=== PATIENT | male | born 1935 | race Hispanic/Latino ===

== ENCOUNTER 2020-12-22 23:25 | Inpatient (IN) | payer MEDICAID, OTHER ==
[~2020-12-22] VITALS: Ht 162.6 cm; Wt 70.0 kg
[2020-12-22 23:53] LABS: BASOPHILS % (AUTO) 1.5 % (0.0-5.0); EOSINOPHILS % (AUTO) 13.6 % (0.0-8.0); HEMATOCRIT 25.7 % (42-54); LYMPHOCYTES % (AUTO) 34.4 % (21.0-51.0); MEAN CORPUSCULAR HEMOGLOBIN 25.6 pg (27.0-33.0); MEAN CORPUSCULAR HGB CONC 31.9 g/dL (32.0-36.0); MEAN CORPUSCULAR VOLUME 80.3 fL (79-99); MONOCYTES % (AUTO) 8.4 % (3.0-13.0); PLATELET COUNT (AUTO) 240 K/uL (130-400); RED CELL DISTRIBUTION WIDTH 14.6 % (11.0-15.5); WHITE BLOOD COUNT (AUTO) 7.5 K/uL (4.8-10.8)
[2020-12-23] MEDS ORDERED: ASPIRIN 81MG CHEW TAB PO ONE
[2020-12-23] MEDS ORDERED: NITROGLYCERIN 1GM OINT 1 INCH/1GM TD ONE
[2020-12-23 00:10] LABS: CREATININE 1.4 mg/dL (0.5-1.5)
[2020-12-23 00:15] LABS: ALBUMIN 3.5 g/dL (3.5-5.0); BILIRUBIN,TOTAL 0.3 mg/dL (0.2-1.0); TOTAL PROTEIN, SERUM 7.2 g/dL (6.0-8.3)
[2020-12-23 02:15] LABS: APPEARANCE,URINE Clear (CLEAR); BILIRUBIN,URINE Negative (NEGATIVE); COLOR,URINE Yellow (YELLOW); GLUCOSE, URINE (UA) Negative (NEGATIVE); KETONES,URINE Negative (NEGATIVE); LEUKOCYTE ESTERASE ,URINE Negative (NEGATIVE); NITRATE,URINE Negative (NEGATIVE); OCCULT BLOOD,URINE Negative (NEGATIVE); PROTEIN,URINE Negative (NEGATIVE); UROBILINOGEN,URINE 0.2 mg/dL (0.2-1.0)
[2020-12-23] MEDS ORDERED: ONDANSETRON 4MG INJ IV PRN (04:00)
[2020-12-23] MEDS ORDERED: ACETAMINOPHEN 325 MG TAB PO PRN ×2 (04:00)
[2020-12-23] MEDS ORDERED: MORPHINE 4 MG SYG IV PRN (04:00)
[2020-12-23] MEDS ORDERED: MAG/ALUM/SIMETH 30 ML UDCUP PO PRN (04:00)
[2020-12-23] MEDS ORDERED: NITROGLYCERIN 0.4 MG SL TAB SL PRN (04:00)
[2020-12-23] MEDS ORDERED: LACTULOSE 20 GM/30 ML UDCUP PO PRN (04:00)
[2020-12-23 05:38] LABS: RETICULOCYTE % (AUTO) 1.26 % (0.42-2.23)
[2020-12-23 05:45] LABS: CHOLESTEROL 188 mg/dL (<200); HDL CHOLESTEROL 46 mg/dL (29-71); LDL DIRECT 119 mg/dL (0-99); TRIGLYCERIDES 83 mg/dL (30-200)
[2020-12-23 05:56] LABS: % IRON SATURATION 6.4 % (30-44)
[2020-12-23] MEDS: ASPIRIN 81 MG EC TAB PO SCH (10:18)
[2020-12-23] MEDS: FAMOTIDINE 20MG VIAL IV SCH ×2 (10:18→20:04)
[2020-12-23] MEDS: ENOXAPARIN SODIUM 40 MG/0.4 ML SYRINGE SQ SCH (10:19)
[2020-12-24 04:30] VITALS: BP 168/57
[2020-12-24 06:04] LABS: BASOPHILS % (AUTO) 1.3 % (0.0-5.0); EOSINOPHILS % (AUTO) 11.7 % (0.0-8.0); HEMATOCRIT 25.6 % (42-54); LYMPHOCYTES % (AUTO) 25.4 % (21.0-51.0); MEAN CORPUSCULAR HEMOGLOBIN 25.2 pg (27.0-33.0); MEAN CORPUSCULAR HGB CONC 31.3 g/dL (32.0-36.0); MEAN CORPUSCULAR VOLUME 80.5 fL (79-99); MONOCYTES % (AUTO) 9.4 % (3.0-13.0); NEUTROPHILS % (AUTO) 52.1 % (40.0-77.0); PLATELET COUNT (AUTO) 252 K/uL (130-400); RED BLOOD CELL COUNT(AUTO) 3.18 MIL/uL (4.50-6.20); RED CELL DISTRIBUTION WIDTH 14.6 % (11.0-15.5); WHITE BLOOD COUNT (AUTO) 7.1 K/uL (4.8-10.8)
[2020-12-24 06:22] LABS: ALBUMIN 3.2 g/dL (3.5-5.0); BILIRUBIN,TOTAL 0.6 mg/dL (0.2-1.0); CREATININE 1.3 mg/dL (0.5-1.5); POTASSIUM 4.8 mmol/L (3.5-5.1); TOTAL PROTEIN, SERUM 6.7 g/dL (6.0-8.3)
[2020-12-24] MEDS ORDERED: EPOETIN ALFA-EPBX (NON-ESRD) 10,000 UNIT/ML VIAL SQ SCH (07:30)
[2020-12-24 08:00] VITALS: BP 126/46
[2020-12-24] MEDS ORDERED: COMPOUND IV MISC 1 EACH IVSOLN MISC PRN (08:00)
[2020-12-24] MEDS ORDERED: REGADENOSON 0.4 MG/5 ML PF SYG IVP SCH (08:30)
[2020-12-24] MEDS: FAMOTIDINE 20MG VIAL IV SCH ×2 (09:07→19:26)
[2020-12-24] MEDS: ASPIRIN 81 MG EC TAB PO SCH (09:08)
[2020-12-24] MEDS: IRON SUCROSE COMPLEX 300 MG in 0.9% NACL 250ML 250 ML IV SCH (09:08)
[2020-12-24] MEDS: ENOXAPARIN SODIUM 40 MG/0.4 ML SYRINGE SQ SCH (09:08)
[2020-12-24 12:00] VITALS: BP 145/43
[2020-12-24 16:00] VITALS: BP 173/53
[2020-12-24 19:13] VITALS: BP 127/49
[2020-12-24] MEDS ORDERED: ASPIRIN PO (19:23)
[2020-12-24] MEDS ORDERED: TELM40TA8 PO (19:23)
[2020-12-24] MEDS ORDERED: NIFE30TA98 PO (19:23)
[2020-12-24] MEDS ORDERED: ISOS10TA2 PO (19:23)
[2020-12-24 23:26] VITALS: BP 148/53
[2020-12-25 03:43] VITALS: BP 153/60
[2020-12-25 08:00] VITALS: BP 141/32
[2020-12-25 08:02] LABS: BASOPHILS % (AUTO) 1.5 % (0.0-5.0); EOSINOPHILS % (AUTO) 10.7 % (0.0-8.0); HEMATOCRIT 26.2 % (42-54); LYMPHOCYTES % (AUTO) 36.6 % (21.0-51.0); MEAN CORPUSCULAR HEMOGLOBIN 25.5 pg (27.0-33.0); MEAN CORPUSCULAR HGB CONC 31.7 g/dL (32.0-36.0); MEAN CORPUSCULAR VOLUME 80.6 fL (79-99); MONOCYTES % (AUTO) 8.7 % (3.0-13.0); NEUTROPHILS % (AUTO) 42.3 % (40.0-77.0); PLATELET COUNT (AUTO) 260 K/uL (130-400); RED BLOOD CELL COUNT(AUTO) 3.25 MIL/uL (4.50-6.20); RED CELL DISTRIBUTION WIDTH 14.6 % (11.0-15.5); WHITE BLOOD COUNT (AUTO) 6.5 K/uL (4.8-10.8)
[2020-12-25 08:28] LABS: B-TYPE NATRIURETIC PEPTIDE 376 pg/mL (0-100)
[2020-12-25 08:31] LABS: CREATININE 1.2 mg/dL (0.5-1.5); POTASSIUM 4.7 mmol/L (3.5-5.1)
[2020-12-25] MEDS: ISOSORBIDE MONO 30MG SR TAB PO SCH (08:41)
[2020-12-25] MEDS: FAMOTIDINE 20MG VIAL IV SCH ×2 (08:41→19:41)
[2020-12-25] MEDS: ASPIRIN 81 MG EC TAB PO SCH (08:41)
[2020-12-25] MEDS: IRON SUCROSE COMPLEX 300 MG in 0.9% NACL 250ML 250 ML IV SCH (08:41)
[2020-12-25] MEDS: ENOXAPARIN SODIUM 40 MG/0.4 ML SYRINGE SQ SCH (08:42)
[2020-12-25 11:52] VITALS: BP 143/46
[2020-12-25] MEDS: NIFEDIPINE ER 30 MG TAB PO SCH (12:01)
[2020-12-25 16:00] VITALS: BP 133/47
[2020-12-25] MEDS: ATORVASTATIN 20 MG TABLET PO SCH (19:41)
[2020-12-25 20:00] VITALS: BP 146/46
[2020-12-25] MEDS ORDERED: NON-FORMULARY MEDICATION 1 EACH (Nifedipine (Nifedipine ER) 30 MG) PO SCH (21:00)
[2020-12-26] VITALS: BP 138/48
[2020-12-26 04:00] VITALS: BP 119/42
[2020-12-26 06:32] LABS: BASOPHILS % (AUTO) 1.5 % (0.0-5.0); EOSINOPHILS % (AUTO) 14.2 % (0.0-8.0); HEMATOCRIT 23.1 % (42-54); LYMPHOCYTES % (AUTO) 33.1 % (21.0-51.0); MEAN CORPUSCULAR HEMOGLOBIN 25.6 pg (27.0-33.0); MEAN CORPUSCULAR VOLUME 79.9 fL (79-99); MONOCYTES % (AUTO) 9.6 % (3.0-13.0); NEUTROPHILS % (AUTO) 41.3 % (40.0-77.0); PLATELET COUNT (AUTO) 242 K/uL (130-400); RED BLOOD CELL COUNT(AUTO) 2.89 MIL/uL (4.50-6.20); RED CELL DISTRIBUTION WIDTH 14.8 % (11.0-15.5); WHITE BLOOD COUNT (AUTO) 6.7 K/uL (4.8-10.8)
[2020-12-26 06:41] LABS: CREATININE 1.2 mg/dL (0.5-1.5); POTASSIUM 4.5 mmol/L (3.5-5.1)
[2020-12-26 08:00] VITALS: BP 117/68
[2020-12-26] MEDS: PANTOPRAZOLE 40 MG/VIAL IVP SCH ×2 (09:30→20:18)
[2020-12-26] MEDS: IRON SUCROSE COMPLEX 300 MG in 0.9% NACL 250ML 250 ML IV SCH (09:30)
[2020-12-26] MEDS: ISOSORBIDE MONO 30MG SR TAB PO SCH (09:31)
[2020-12-26] MEDS: ASPIRIN 81 MG EC TAB PO SCH (09:31)
[2020-12-26] MEDS: NIFEDIPINE ER 30 MG TAB PO SCH (09:32)
[2020-12-26 12:00] VITALS: BP 122/45
[2020-12-26 13:20] LABS: HEMATOCRIT 24.9 % (42-54)
[2020-12-26 16:00] VITALS: BP 122/43
[2020-12-26 20:00] VITALS: BP 126/42
[2020-12-26] MEDS: ATORVASTATIN 20 MG TABLET PO SCH (20:18)
[2020-12-27] VITALS (7 sets, daily range): BP systolic 128–189; BP diastolic 42–56
[2020-12-27 04:34] LABS: CREATININE 1.2 mg/dL (0.5-1.5); POTASSIUM 4.3 mmol/L (3.5-5.1)
[2020-12-27 05:04] LABS: BASOPHILS % (AUTO) 1.2 % (0.0-5.0); EOSINOPHILS % (AUTO) 14.9 % (0.0-8.0); HEMATOCRIT 22.4 % (42-54); LYMPHOCYTES % (AUTO) 34.8 % (21.0-51.0); MEAN CORPUSCULAR HEMOGLOBIN 25.6 pg (27.0-33.0); MEAN CORPUSCULAR HGB CONC 31.7 g/dL (32.0-36.0); MEAN CORPUSCULAR VOLUME 80.9 fL (79-99); NEUTROPHILS % (AUTO) 38.7 % (40.0-77.0); NUCLEATED RED BLOOD CELLS 0.3 % (0.0-0.19); PLATELET COUNT (AUTO) 244 K/uL (130-400); RED BLOOD CELL COUNT(AUTO) 2.77 MIL/uL (4.50-6.20); RED CELL DISTRIBUTION WIDTH 14.9 % (11.0-15.5); WHITE BLOOD COUNT (AUTO) 7.7 K/uL (4.8-10.8)
[2020-12-27] MEDS: NIFEDIPINE ER 30 MG TAB PO SCH (09:33)
[2020-12-27] MEDS: ASPIRIN 81 MG EC TAB PO SCH (09:33)
[2020-12-27] MEDS: ISOSORBIDE MONO 30MG SR TAB PO SCH (09:33)
[2020-12-27] MEDS: PANTOPRAZOLE 40 MG TAB DR PO SCH ×2 (09:33→16:50)
[2020-12-27 11:56] LABS: HEMATOCRIT 25.2 % (42-54)
[2020-12-27] MEDS: ATORVASTATIN 20 MG TABLET PO SCH (19:53)
[2020-12-28 04:40] VITALS: BP 173/51
[2020-12-28 04:50] LABS: HEMATOCRIT 23.2 % (42-54); MEAN CORPUSCULAR HEMOGLOBIN 25.6 pg (27.0-33.0); MEAN CORPUSCULAR HGB CONC 31.5 g/dL (32.0-36.0); MEAN CORPUSCULAR VOLUME 81.4 fL (79-99); RED BLOOD CELL COUNT(AUTO) 2.85 MIL/uL (4.50-6.20); RED CELL DISTRIBUTION WIDTH 15.1 % (11.0-15.5); WHITE BLOOD COUNT (AUTO) 6.8 K/uL (4.8-10.8)
[2020-12-28] MEDS: PANTOPRAZOLE 40 MG TAB DR PO SCH ×2 (07:28→17:44)
[2020-12-28 07:59] VITALS: BP 160/64
[2020-12-28] MEDS: ASPIRIN 81 MG EC TAB PO SCH (08:00)
[2020-12-28] MEDS: NIFEDIPINE ER 30 MG TAB PO SCH (08:00)
[2020-12-28] MEDS: ISOSORBIDE MONO 30MG SR TAB PO SCH (08:01)
[2020-12-28 10:38] VITALS: BP 119/50
[2020-12-28 15:22] VITALS: BP 128/47
[2020-12-28] MEDS ORDERED: IRON SUCROSE COMPLEX 300 MG in 0.9%NACL 50ML 50 ML IV SCH (18:30)
[2020-12-28] MEDS ORDERED: PEG 3350/NA SULF,BICARB,CL/KCL 4000 ML SOLN PO SCH (19:30)
[2020-12-28] MEDS ORDERED: MAGNESIUM CITRATE 296 ML SOLUTION PO SCH (19:30)
[2020-12-28] MEDS ORDERED: LACTULOSE 20 GM/30 ML UDCUP PO SCH (19:30)
[2020-12-28 20:28] VITALS: BP 144/49
[2020-12-28] MEDS: ATORVASTATIN 20 MG TABLET PO SCH (21:09)
[2020-12-28 23:20] VITALS: BP 125/49
[2020-12-29] VITALS (21 sets, daily range): BP systolic 119–185; BP diastolic 38–99
[2020-12-29 05:42] LABS: BASOPHILS % (AUTO) 1.5 % (0.0-5.0); EOSINOPHILS % (AUTO) 13.1 % (0.0-8.0); HEMATOCRIT 30.5 % (42-54); LYMPHOCYTES % (AUTO) 30.8 % (21.0-51.0); MEAN CORPUSCULAR HEMOGLOBIN 25.6 pg (27.0-33.0); MEAN CORPUSCULAR HGB CONC 32.1 g/dL (32.0-36.0); MEAN CORPUSCULAR VOLUME 79.6 fL (79-99); NUCLEATED RED BLOOD CELLS 0.2 % (0.0-0.19); PLATELET COUNT (AUTO) 298 K/uL (130-400); RED BLOOD CELL COUNT(AUTO) 3.83 MIL/uL (4.50-6.20); RED CELL DISTRIBUTION WIDTH 17.5 % (11.0-15.5); WHITE BLOOD COUNT (AUTO) 9.3 K/uL (4.8-10.8)
[2020-12-29 05:52] LABS: CREATININE 1.2 mg/dL (0.5-1.5); POTASSIUM 4.3 mmol/L (3.5-5.1)
[2020-12-29] MEDS: PANTOPRAZOLE 40 MG TAB DR PO SCH ×2 (05:56→16:37)
[2020-12-29] MEDS: NIFEDIPINE ER 30 MG TAB PO SCH (08:13)
[2020-12-29] MEDS: ASPIRIN 81 MG EC TAB PO SCH (08:13)
[2020-12-29] MEDS: ISOSORBIDE MONO 30MG SR TAB PO SCH (08:14)
[2020-12-29] MEDS: HYDRALAZINE 20MG/ML VIAL IV SCH (09:14)
[2020-12-29] MEDS ORDERED: PROPOFOL 10 MG/ML 20ML VIAL IV ONE (13:55)
[2020-12-29] MEDS: ATORVASTATIN 20 MG TABLET PO SCH (20:05)
[2020-12-29] MEDS: HYDROCORTISONE 25 MG SUPPOSITORY PR SCH (20:05)
[2020-12-30 04:10] VITALS: BP 162/62
[2020-12-30 05:05] LABS: BASOPHILS % (AUTO) 1.1 % (0.0-5.0); EOSINOPHILS % (AUTO) 8.5 % (0.0-8.0); HEMATOCRIT 26.6 % (42-54); LYMPHOCYTES % (AUTO) 17.6 % (21.0-51.0); MEAN CORPUSCULAR HEMOGLOBIN 25.5 pg (27.0-33.0); MEAN CORPUSCULAR HGB CONC 30.8 g/dL (32.0-36.0); MEAN CORPUSCULAR VOLUME 82.6 fL (79-99); MONOCYTES % (AUTO) 8.8 % (3.0-13.0); NEUTROPHILS % (AUTO) 63.7 % (40.0-77.0); PLATELET COUNT (AUTO) 256 K/uL (130-400); RED BLOOD CELL COUNT(AUTO) 3.22 MIL/uL (4.50-6.20); RED CELL DISTRIBUTION WIDTH 17.9 % (11.0-15.5)
[2020-12-30 05:39] LABS: MAGNESIUM 2.2 mg/dL (1.80-2.40); POTASSIUM 4.1 mmol/L (3.5-5.1)
[2020-12-30] MEDS: PANTOPRAZOLE 40 MG TAB DR PO SCH (06:16)
[2020-12-30 07:00] VITALS: BP 156/49
[2020-12-30] MEDS ORDERED: HYDR25SU38 RC (08:19)
[2020-12-30] MEDS ORDERED: ISOS30TA92 PO (08:19)
[2020-12-30] MEDS ORDERED: PANT40TA55 PO (08:19)
[2020-12-30] MEDS ORDERED: AEC81 PO (08:19)
[2020-12-30] MEDS: ASPIRIN 81 MG EC TAB PO SCH (08:57)
[2020-12-30] MEDS: ISOSORBIDE MONO 30MG SR TAB PO SCH (08:57)
[2020-12-30] MEDS: NIFEDIPINE ER 30 MG TAB PO SCH (08:57)
[2020-12-30] MEDS: HYDRALAZINE 20MG/ML VIAL IV SCH (08:58)
[2020-12-30] MEDS: HYDROCORTISONE 25 MG SUPPOSITORY PR SCH (09:00)
[2020-12-30 11:00] VITALS: BP 131/30
[2020-12-30] MEDS ORDERED: FERS325 PO (15:03)
== END 2020-12-30 15:15 | disposition home or self-care (01) | DRG 313 ==
LOC: EDH 23:25 → EDHIP 23:26 → EDH 23:45 → 4AH 12-24 02:53
PROVIDERS: ADMIT Hospitalist; ATTEND Hospitalist
PROC: 30233N1 Transfusion of Nonautologous Red Blood Cells into Peripheral Vein, Percutaneous Approach (ICD-10-PCS; principal; 2020-12-28)
PROC: 0DB38ZX Excision of Lower Esophagus, Via Natural or Artificial Opening Endoscopic, Diagnostic (ICD-10-PCS; 2020-12-29)
PROC: 0DB78ZX Excision of Stomach, Pylorus, Via Natural or Artificial Opening Endoscopic, Diagnostic (ICD-10-PCS; 2020-12-29)
PROC: 0DB68ZX Excision of Stomach, Via Natural or Artificial Opening Endoscopic, Diagnostic (ICD-10-PCS; 2020-12-29)
PROC: 0DJD8ZZ Inspection of Lower Intestinal Tract, Via Natural or Artificial Opening Endoscopic (ICD-10-PCS; 2020-12-29)
DX: R07.89 Other chest pain (principal); K29.71 Gastritis, unspecified, with bleeding; I25.10 Atherosclerotic heart disease of native coronary artery without angina pectoris; N18.31 Chronic kidney disease, stage 3a; I12.9 Hypertensive chronic kidney disease with stage 1 through stage 4 chronic kidney disease, or unspecified chronic kidney disease; D50.9 Iron deficiency anemia, unspecified; E78.5 Hyperlipidemia, unspecified; Z20.822 Contact with and (suspected) exposure to COVID-19; K21.00 Gastro-esophageal reflux disease with esophagitis, without bleeding; K44.9 Diaphragmatic hernia without obstruction or gangrene; K29.00 Acute gastritis without bleeding; K64.1 Second degree hemorrhoids; K59.00 Constipation, unspecified; K57.30 Diverticulosis of large intestine without perforation or abscess without bleeding; E78.00 Pure hypercholesterolemia, unspecified; K21.9 Gastro-esophageal reflux disease without esophagitis; K27.9 Peptic ulcer, site unspecified, unspecified as acute or chronic, without hemorrhage or perforation; I35.2 Nonrheumatic aortic (valve) stenosis with insufficiency; M19.90 Unspecified osteoarthritis, unspecified site; Z79.899 Other long term (current) drug therapy; Z85.46 Personal history of malignant neoplasm of prostate; Z90.79 Acquired absence of other genital organ(s); Z82.49 Family history of ischemic heart disease and other diseases of the circulatory system
CPT/HCPCS: 36415; 36430; 43239; 45378; 71045; 78452; 80048; 80053; 80061; 81003; 82270; 82607; 82728; 83735; 83880; 83883; 84443; 84484; 85014; 85018; 85025; 85027; 86334; 86850; 86900; 86901; 86923; 87635; 88305; 88342; 93005; 93017; 93306; 93356; 96374; A4606; A9500; C9113; G0378; J0360; J1650; J1756; J2704; J2785; J3490; J7030; J7050; P9016

== ENCOUNTER 2021-02-22 04:58 | Observation (INO) | payer MEDICAID, OTHER ==
[~2021-02-22] VITALS: Ht 172.7 cm; Wt 67.1 kg
[~2021-02-22 04:58] MED LIST: AEC81 PO; FERS325 PO; HYDR25SU38 RC; ISOS30TA92 PO; NIFE30TA98 PO; PANT40TA55 PO
[2021-02-22 05:59] LABS: BASOPHILS % (AUTO) 1.9 % (0.0-5.0); EOSINOPHILS % (AUTO) 3.5 % (0.0-8.0); HEMATOCRIT 27.7 % (42-54); LYMPHOCYTES % (AUTO) 42.4 % (21.0-51.0); MEAN CORPUSCULAR HEMOGLOBIN 28.1 pg (27.0-33.0); MEAN CORPUSCULAR HGB CONC 33.2 g/dL (32.0-36.0); MEAN CORPUSCULAR VOLUME 84.7 fL (79-99); MONOCYTES % (AUTO) 7.4 % (3.0-13.0); NEUTROPHILS % (AUTO) 44.4 % (40.0-77.0); PLATELET COUNT (AUTO) 188 K/uL (130-400); RED BLOOD CELL COUNT(AUTO) 3.27 MIL/uL (4.50-6.20); RED CELL DISTRIBUTION WIDTH 17.7 % (11.0-15.5); WHITE BLOOD COUNT (AUTO) 5.7 K/uL (4.8-10.8)
[2021-02-22 06:13] LABS: CREATININE 1.1 mg/dL (0.5-1.5)
[2021-02-22 06:17] LABS: ALBUMIN 3.6 g/dL (3.5-5.0); BILIRUBIN,TOTAL 0.4 mg/dL (0.2-1.0); TOTAL PROTEIN, SERUM 6.8 g/dL (6.0-8.3)
[2021-02-22] MEDS ORDERED: ASPIRIN 81MG CHEW TAB PO SCH (06:30)
[2021-02-22] MEDS ORDERED: HYDRALAZINE 20MG/ML VIAL IV PRN (08:30)
[2021-02-22] MEDS: NIFEDIPINE ER 30 MG TAB PO SCH (09:10)
[2021-02-22 17:32] VITALS: BP 143/60
[2021-02-22] MEDS ORDERED: ATOR10 PO (17:55)
[2021-02-22] MEDS ORDERED: TELM40TA8 PO (17:55)
[2021-02-22] MEDS ORDERED: ISOS10TA2 PO (17:55)
[2021-02-22] MEDS ORDERED: MECO10005 PO (17:55)
[2021-02-22 19:18] LABS: % IRON SATURATION 23.7 % (30-44)
[2021-02-22 19:50] VITALS: BP 126/46
[2021-02-22 23:52] VITALS: BP 132/45
[2021-02-23 03:55] VITALS: BP 89/45
[2021-02-23 06:39] LABS: BASOPHILS % (AUTO) 1.8 % (0.0-5.0); EOSINOPHILS % (AUTO) 4.9 % (0.0-8.0); HEMATOCRIT 25.7 % (42-54); LYMPHOCYTES % (AUTO) 42.8 % (21.0-51.0); MEAN CORPUSCULAR HEMOGLOBIN 28.5 pg (27.0-33.0); MEAN CORPUSCULAR HGB CONC 33.1 g/dL (32.0-36.0); MEAN CORPUSCULAR VOLUME 86.2 fL (79-99); MONOCYTES % (AUTO) 8.2 % (3.0-13.0); NEUTROPHILS % (AUTO) 42.1 % (40.0-77.0); PLATELET COUNT (AUTO) 206 K/uL (130-400); RED BLOOD CELL COUNT(AUTO) 2.98 MIL/uL (4.50-6.20); RED CELL DISTRIBUTION WIDTH 17.9 % (11.0-15.5); WHITE BLOOD COUNT (AUTO) 4.5 K/uL (4.8-10.8)
[2021-02-23 06:46] LABS: CREATININE 0.9 mg/dL (0.5-1.5); POTASSIUM 4.5 mmol/L (3.5-5.1)
[2021-02-23] MEDS: NIFEDIPINE ER 30 MG TAB PO SCH (07:25)
[2021-02-23 08:00] VITALS: BP 130/40
[2021-02-23 11:38] VITALS: BP 111/41
[2021-02-23 15:51] VITALS: BP 128/29
[2021-02-23] MEDS ORDERED: METRONIDAZOLE 500 MG TABLET PO SCH (18:00)
[2021-02-23] MEDS ORDERED: CLARITHROMYCIN 500 MG TABLET PO SCH (18:00)
[2021-02-23 19:36] VITALS: BP 137/53
[2021-02-23] MEDS: PANTOPRAZOLE 40 MG TAB DR PO SCH (21:22)
[2021-02-23] MEDS: CLARITHROMYCIN 500 MG TABLET PO SCH (21:22)
[2021-02-23] MEDS: METRONIDAZOLE 500 MG TABLET PO SCH (21:22)
[2021-02-23 23:59] VITALS: BP 117/42
[2021-02-24 03:45] LABS: HEMATOCRIT 25.2 % (42-54); MEAN CORPUSCULAR HEMOGLOBIN 28.9 pg (27.0-33.0); MEAN CORPUSCULAR HGB CONC 33.3 g/dL (32.0-36.0); MEAN CORPUSCULAR VOLUME 86.6 fL (79-99); RED BLOOD CELL COUNT(AUTO) 2.91 MIL/uL (4.50-6.20); RED CELL DISTRIBUTION WIDTH 17.9 % (11.0-15.5); WHITE BLOOD COUNT (AUTO) 6.2 K/uL (4.8-10.8)
[2021-02-24 04:17] VITALS: BP 131/42
[2021-02-24] MEDS: METRONIDAZOLE 500 MG TABLET PO SCH (05:08)
[2021-02-24 05:14] VITALS: BP 132/40
[2021-02-24 08:20] VITALS: BP 109/48
[2021-02-24] MEDS ORDERED: NITROGLYCERIN 0.4 MG SL TAB SL ONE (10:58)
[2021-02-24] MEDS ORDERED: NITROGLYCERIN 0.4 MG SL TAB SL PRN (11:00)
[2021-02-24] MEDS: CLARITHROMYCIN 500 MG TABLET PO SCH ×2 (11:07→20:56)
[2021-02-24] MEDS: NIFEDIPINE ER 30 MG TAB PO SCH (11:10)
[2021-02-24] MEDS: PANTOPRAZOLE 40 MG TAB DR PO SCH ×2 (11:10→20:57)
[2021-02-24 12:00] VITALS: BP 139/49
[2021-02-24 16:26] VITALS: BP 135/64
[2021-02-24] MEDS ORDERED: METR-172 PO (17:52)
[2021-02-24] MEDS ORDERED: NIFE-40 PO (17:52)
[2021-02-24] MEDS ORDERED: PANT40TA PO (17:52)
[2021-02-24] MEDS ORDERED: CLAR-44 PO (17:52)
[2021-02-24 20:00] VITALS: BP 130/47
== END 2021-02-24 22:00 | disposition home or self-care (01) ==
LOC: EDH 04:58 → EDHIP 08:21 → 2DH 17:38 → 4DH 02-24 05:05
PROVIDERS: ADMIT Internal Medicine; ATTEND Internal Medicine
DX: R07.89 Other chest pain (principal); Z20.822 Contact with and (suspected) exposure to COVID-19; D50.0 Iron deficiency anemia secondary to blood loss (chronic); I35.0 Nonrheumatic aortic (valve) stenosis; R06.02 Shortness of breath; I16.0 Hypertensive urgency; I35.1 Nonrheumatic aortic (valve) insufficiency; K57.30 Diverticulosis of large intestine without perforation or abscess without bleeding; I12.9 Hypertensive chronic kidney disease with stage 1 through stage 4 chronic kidney disease, or unspecified chronic kidney disease; N18.2 Chronic kidney disease, stage 2 (mild); D63.1 Anemia in chronic kidney disease; E78.5 Hyperlipidemia, unspecified; I24.9 Acute ischemic heart disease, unspecified; M19.90 Unspecified osteoarthritis, unspecified site; H91.90 Unspecified hearing loss, unspecified ear; K29.71 Gastritis, unspecified, with bleeding; B96.81 Helicobacter pylori [H. pylori] as the cause of diseases classified elsewhere; K64.8 Other hemorrhoids; I25.119 Atherosclerotic heart disease of native coronary artery with unspecified angina pectoris; I35.2 Nonrheumatic aortic (valve) stenosis with insufficiency; K21.00 Gastro-esophageal reflux disease with esophagitis, without bleeding; K44.9 Diaphragmatic hernia without obstruction or gangrene; Z79.899 Other long term (current) drug therapy; Z79.82 Long term (current) use of aspirin; Z87.11 Personal history of peptic ulcer disease; Z95.2 Presence of prosthetic heart valve
CPT/HCPCS: 36415 ×3; 71045; 80048; 80053; 82270; 82550; 82728; 83540; 83550; 83874; 83880; 84484 ×4; 85025 ×2; 85027; 87426; 93005 ×2; 99285; G0378 ×62